=== PATIENT | female | born 2000 | race Caucasian/White ===

== ENCOUNTER 2020-11-13 18:41 | Emergency (ER) | payer MEDICAID ==
[~2020-11-13] VITALS: Ht 165.1 cm; Wt 86.2 kg
[2020-11-13 18:45] VITALS: BP 110/61
--- NOTE | 2020-11-13 18:51 | NUR ---
AMBULATED TO BED 3
--- NOTE | 2020-11-13 19:20 | NUR ---
MICHELLE TORRES AT BEDSIDE, PERFORMED COMPLETE ASSESSMENT OF THIS PT. NO ACUTE DISTRESS NOTED. NO NURSING INTERVENTIONS NEEDED AT THIS TIME.
[2020-11-13 20:15] VITALS: BP 110/61
--- NOTE | 2020-11-13 20:15 | NUR ---
Patient discharged with v/s stable. Written and verbal after care instructions given and explained. Patient verbalized understanding. Ambulatory with steady gait. All questions addressed prior to discharge. Advised to follow up with PMD.
== END 2020-11-13 20:15 | disposition home or self-care (01) ==
LOC: MED 18:41
DX: R05 Cough (principal); R09.89 Other specified symptoms and signs involving the circulatory and respiratory systems; R11.0 Nausea; R06.02 Shortness of breath; Z20.822 Contact with and (suspected) exposure to COVID-19
CPT/HCPCS: 99283; U0003

== ENCOUNTER 2024-03-01 17:38 | Emergency (ER) | payer MEDICAID ==
[~2024-03-01] VITALS: Ht 165.1 cm; Wt 104.3 kg
[2024-03-01 18:21] VITALS: BP 122/68; PULSE 84; RESP 18; TEMP 98.7; O2SAT 100
[2024-03-01] MEDS ORDERED: NAPR-1704 PO (18:40)
[2024-03-01] MEDS ORDERED: CAPS1ADH5 TP (18:40)
== END 2024-03-01 18:49 | disposition home or self-care (01) ==
LOC: MED 17:38
DX: S46.811A Strain of other muscles, fascia and tendons at shoulder and upper arm level, right arm, initial encounter (principal); Z79.899 Other long term (current) drug therapy; X58.XXXA Exposure to other specified factors, initial encounter; Y93.89 Activity, other specified; Y92.89 Other specified places as the place of occurrence of the external cause; Y99.8 Other external cause status
CPT/HCPCS: 81025; 99282